=== PATIENT | female | born 1990 ===

== ENCOUNTER → 2017-12-09 | Outpatient (CLI) | payer OTHER | LOC: CARD 13:25 | PROVIDERS: ATTEND Registered Nurse | DX: G40.909 Epilepsy, unspecified, not intractable, without status epilepticus (principal) | CPT/HCPCS: 95819 ==

== ENCOUNTER → 2017-12-10 | Outpatient (CLI) | payer OTHER ==
[~2017-12-10] MED LIST: GADOBUTROL 7.5 MMOL/7.5 ML VIAL ONE
== END | disposition home or self-care (01) ==
LOC: CFH 10:36
PROVIDERS: ATTEND Registered Nurse
DX: G40.909 Epilepsy, unspecified, not intractable, without status epilepticus (principal)
CPT/HCPCS: 70553; A9585

== ENCOUNTER 2018-03-08 19:54 | Emergency (ER) | payer OTHER ==
[~2018-03-08] VITALS: Ht 157.5 cm; Wt 49.0 kg
[2018-03-08 20:00] VITALS: BP 113/76
[2018-03-08] MEDS ORDERED: ACYC-113 PO (20:20)
[2018-03-08] MEDS ORDERED: DIVA500T2 PO (20:20)
== END 2018-03-08 20:59 | disposition home or self-care (01) ==
LOC: ED 20:53
DX: S60.811A Abrasion of right wrist, initial encounter (principal); S60.511A Abrasion of right hand, initial encounter; L03.113 Cellulitis of right upper limb; W13.0XXA Fall from, out of or through balcony, initial encounter; Y93.89 Activity, other specified; Y92.89 Other specified places as the place of occurrence of the external cause; Y99.0 Civilian activity done for income or pay
CPT/HCPCS: 99284

== ENCOUNTER 2019-03-10 03:03 | Emergency (ER) | payer MEDICAID ==
[~2019-03-10] VITALS: Ht 157.5 cm; Wt 48.0 kg
[~2019-03-10 03:03] MED LIST changes: +ACYC-113 PO; +DIVA500T2 PO; -GADOBUTROL 7.5 MMOL/7.5 ML VIAL ONE
--- NOTE | 2019-03-10 03:15 | NUR ---
Pt BIB EMS from work, c/o witnessed seizure w/ head trauma, denies incontinence, no oral trauma noted, vitals stable, aox4, denies pain. EKG comple, NSR on monitor. Seizure precautions in place. Pt reports last seizure december 2018, unable to take homemedication, depakote, x 3 days.
[2019-03-10] MEDS ORDERED: DIVALPROEX 500 MG TAB.ER.24H PO STA (03:48)
[2019-03-10 03:51] LABS: BASOPHILS # (AUTO) 0.02 x10^3/uL (0-0.1); BASOPHILS % (AUTO) 0 % (0-1); EOSINOPHILS # (AUTO) 0.16 x10^3/uL (0-0.4); EOSINOPHILS % (AUTO) 3 % (1-7); LYMPHOCYTES # (AUTO) 2.09 x10^3/uL (1-3.4); LYMPHOCYTES % (AUTO) 32 % (22-44); MD NO; MEAN CORPUSCULAR HEMOGLOBIN 35.9 pg (27.0-34.8); MEAN CORPUSCULAR HGB CONC 33.2 g/dL (32.4-35.8); MEAN CORPUSCULAR VOLUME 108.1 fL (80-100); MEAN PLATELET VOLUME 9.6 fL (7.4-10.4); MONOCYTES # (AUTO) 0.62 x10^3/uL (0.2-0.8); MONOCYTES % (AUTO) 9 % (2-9); NEUTROPHILS # (AUTO) 3.71 x10^3/uL (1.8-6.8); NEUTROPHILS % (AUTO) 56 % (42-75); PLATELET COUNT 137 x10^3/uL (130-400); RED BLOOD COUNT 3.51 x10^6/uL (3.82-5.3); RED CELL DISTRIBUTION WIDTH 15.1 % (9.6-15.2)
[2019-03-10 03:57] LABS: ALANINE AMINOTRANSFERASE 15 U/L (12-78); ALBUMIN 4.2 g/dL (3.4-5.0); ANION GAP 7 mmol/L (5-15); CALCIUM 8.8 mg/dL (8.5-10.1); CHLORIDE 107 mmol/L (98-107); CREATININE 0.89 mg/dL (0.55-1.02)
[2019-03-10] MEDS ORDERED: DIVALPROEX 500 MG TAB.ER.24H ONE (03:57)
[2019-03-10] MEDS ORDERED: LORazepam 1MG TABLET ONE (03:58)
[2019-03-10 03:59] LABS: ALKALINE PHOSPHATASE 45 U/L (45-117); BILIRUBIN,TOTAL 0.4 mg/dL (0.2-1.0); TOTAL PROTEIN 7.5 g/dL (6.4-8.2)
[2019-03-10] MEDS ORDERED: LORazepam 1MG TABLET PO ONE (04:00)
--- NOTE | 2019-03-10 04:00 | NUR ---
Pt medicated per MD orders, waiting for results. Vitals stable, denies pain, watching tv.
[2019-03-10 04:01] VITALS: BP 121/65
== END 2019-03-10 04:32 | disposition home or self-care (01) ==
LOC: ED 04:29
DX: S00.83XA Contusion of other part of head, initial encounter (principal); G40.409 Other generalized epilepsy and epileptic syndromes, not intractable, without status epilepticus; X58.XXXA Exposure to other specified factors, initial encounter; Y93.89 Activity, other specified; Y92.89 Other specified places as the place of occurrence of the external cause; Y99.8 Other external cause status
CPT/HCPCS: 36415; 80053; 80307; 84703; 85025; 93005; 99284